=== PATIENT | male | born 1980 | race Caucasian/White ===

== ENCOUNTER 2016-12-07 01:51 | Emergency (ER) | payer MEDICAID, OTHER ==
[~2016-12-07] VITALS: Ht 177.8 cm; Wt 88.0 kg
[~2016-12-07 01:51] MED LIST: BACT800T5 PO; DOXY100C PO; MEDICAL COMPRES1 MI3
[2016-12-07 01:52] VITALS: BP 132/84; PULSE 99; RESP 18; TEMP 98; O2SAT 99
[2016-12-07] MEDS ORDERED: LIDOCAINE 1%/EPINEPHrine 1:100,000 SOLN 20 ML VIAL INFIL ONE (03:00)
[2016-12-07] MEDS ORDERED: CLINDAMYCIN 150 MG CAP PO ONE (03:00)
[2016-12-07] MEDS ORDERED: CLIN1CAP5 PO (03:00)
--- NOTE | 2016-12-07 03:01 | PD ---
HPI Chief Complaint: Skin Problem Time Seen by Provider: 02:47 Travel History International Travel<30 days: No Contact w/Intl Traveler<30days: No Traveled to known affect area: No History of Present Illness HPI The patient's 36. He's had about 1 week of left forearm swelling and pain. It' s worse with palpation. Erythema has been observed. The patient has a history of IV drug abuse. He is currently using. He denies chest pain turns of breath. He said no fever. He's had no hematuria. 2. No palpitations PFSH Past Medical History Asthma: No Autoimmune Disease: No COPD: No Diabetes: No Diminished Hearing: No Respiratory: No Pancreatitis: Yes Sleep Apnea: No Past Surgical History Oral Surgery: Yes (WISDOM TEETH REMOVED UNDER ANESTHESIA) Social History Alcohol Use: Yes (one x a month) Tobacco Use: Yes (1 PPD) Substance Use: No (hx of IV COCAINE, PAIN PILL) Allergies-Medications (Allergen,Severity, Reaction): Coded Allergies: No Known Allergies (Verified , 12/07/16) Reported Meds & Prescriptions Reported Meds & Active Scripts Active Clindamycin (Clindamycin HCl) 150 Mg Cap 450 Mg PO Q8HR 10 Days Review of Systems Except as stated in HPI: all other systems reviewed are Neg Physical Exam Narrative GENERAL: 36-year-old male, no acute distress SKIN: Focused skin assessment warm/dry. Left forearm with swelling and erythema and tenderness. There is fluctuance along the ulnar and anterior aspect of the proximal left forearm. HEAD: Atraumatic. Normocephalic. EYES: Pupils equal and round. No scleral icterus. No injection or drainage. ENT: No nasal bleeding or discharge. Mucous membranes pink and moist. NECK: Trachea midline. No JVD. CARDIOVASCULAR: Regular rate and rhythm. No murmur appreciated. RESPIRATORY: No accessory muscle use. Clear to auscultation. Breath sounds equal bilaterally. GASTROINTESTINAL: Abdomen soft, non-tender, nondistended. Hepatic and splenic margins not palpable. MUSCULOSKELETAL: No obvious deformities. No clubbing. No cyanosis. No edema. 2+ radial artery pulse bilaterally. Hand hammer runner is equal bilaterally. NEUROLOGICAL: Awake and alert. No obvious cranial nerve deficits. Motor grossly within normal limits. Normal speech. PSYCHIATRIC: Appropriate mood and affect; insight and judgment normal. Data Data Last Documented VS Vital Signs Date Time Temp Pulse Resp B/P Pulse Ox O2 Delivery O2 Flow Rate FiO2 12/07/16 01:52 98.0 99 18 132/84 99 Vital signs reviewed Orders Wound Care (12/07/16 02:49) Lidocai-Epi 1%-1:100,000 Inj (Xylocaine- (12/07/16 03:00) Clindamycin (Cleocin) (12/07/16 03:00) Wound Culture And Gram Stain (12/07/16 03:16) MDM Medical Decision Making Medical Screen Exam Complete: Yes Emergency Medical Condition: Yes Medical Record Reviewed: Yes Differential Diagnosis Abscess, cellulitis, IV drug abuse, necrotizing fasciitis Narrative Course There is no crepitus. There is a fluctuant abscess. It will be drained. We' ll send the patient with clindamycin. At this juncture is considered unlikely the patient has endocarditis. Diagnosis Primary Impression: Abscess Additional Impression: IVDU (intravenous drug user) Referrals: return for wound check in 2 days 2 days Additional Instructions: You have a choice when it comes to health care, and we are glad that you chose [facility]. Hopefully, we have met your expectations on today's visit. You are welcome to return to [facility] at any time, as we are committed to meeting the health care needs of our community. Med/Other Pt SpecificInfo: Prescription(s) given Scripts Clindamycin 150 Mg [id number] Mg PO Q8HR 10 Days Ref 0 Prov:Triston Alexis MD 12/07/16 Disposition: 01 DISCHARGE HOME Condition: Stable Triston Alexis MD Dec 07, 2016 03:01
--- NOTE | 2016-12-07 03:24 | PD ---
Physical Exam Narrative I was asked by Dr. Alexis to I&D patient's abscess. Please see his documentation for H&P. Data Data Last Documented VS Vital Signs Date Time Temp Pulse Resp B/P Pulse Ox O2 Delivery O2 Flow Rate FiO2 12/07/16 01:52 98.0 99 18 132/84 99 Orders Wound Care (12/07/16 02:49) Lidocai-Epi 1%-1:100,000 Inj (Xylocaine- (12/07/16 03:00) Clindamycin (Cleocin) (12/07/16 03:00) Wound Culture And Gram Stain (12/07/16 03:16) MDM Supervised Visit with RERE: No Procedures Procedure Narrative INCISION AND DRAINAGE OF ABSCESS: Verbal consent was obtained. The area was prepped. A subcutaneous wheal of 1% Xylocaine with epi with a total number 2 mL was used to anesthetize the area. The area was properly anesthetized. A number 11 scalpel was used to make a 1-cm incision across the area of the abscess. The abscess was drained and irrigated with normal saline. Quarter inch iodoform packing was placed in the wound. Sterile dressing applied by nurse. Patient tolerated procedure well. Patient advised to return here in 2 days to have packing removed and wound rechecked. Patient verbalized understanding. Diagnosis Primary Impression: Abscess Additional Impression: IVDU (intravenous drug user) Additional Instruction: You have a choice when it comes to health care, and we are glad that you chose [facility]. Hopefully, we have met your expectations on today's visit. You are welcome to return to [facility] at any time, as we are committed to meeting the health care needs of our community. Scripts Clindamycin 150 Mg [id number] Mg PO Q8HR 10 Days Ref 0 Prov:Triston Alexis MD 12/07/16 Disposition: 01 DISCHARGE HOME Condition: Stable Aung Zapata Dec 07, 2016 03:24
== END 2016-12-07 03:34 | disposition home or self-care (01) ==
LOC: NEPE 01:51
DX: L02.414 Cutaneous abscess of left upper limb (principal); B95.61 Methicillin susceptible Staphylococcus aureus infection as the cause of diseases classified elsewhere
CPT/HCPCS: 10061; 86403; 87070; 87186

== ENCOUNTER 2017-01-05 18:21 | Inpatient (IN) | payer MEDICAID ==
[~2017-01-05] VITALS: Ht 177.8 cm; Wt 84.3 kg
[2017-01-05 18:20] VITALS: O2SAT 99
[~2017-01-05 18:21] MED LIST changes: -BACT800T5 PO; +CLIN1CAP5 PO; -DOXY100C PO; -MEDICAL COMPRES1 MI3
[2017-01-05] MEDS ORDERED: fentaNYL CITRATE 250 MCG/5 ML AMP ONE (18:28)
[2017-01-05] MEDS ORDERED: DIPHTH/TETANUS/ACEL PERTUSSIS (BOOSTER) 0.5 ML VIAL/PFS IM ONE (18:29)
[2017-01-05] MEDS ORDERED: ceFAZolin 2 GM PREMIX 50 ML ONE (18:29)
--- NOTE | 2017-01-05 18:33 | PD ---
HPI Time Seen by Provider: 18:24 Data Data Orders Orders Ed Poc Ultrasound (01/05/17 ) Fentanyl Inj (Fentanyl Inj) (01/05/17 18:28) Cefazolin 2 Gm Premix (Ancef 2 Gm Premix (01/05/17 18:29) Ojkw-Snh-Bqznyi (Booster) Inj (Boostrix (01/05/17 18:29) Domingo Kumar MD Jan 05, 2017 18:33
[2017-01-05] MEDS ORDERED: LIDOCAINE 1%/EPINEPHrine 1:100,000 SOLN 20 ML VIAL INFIL ONE (18:45)
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
[2017-01-05 18:57] LABS: I-STAT POTASSIUM 3.1 MMOL/L (3.5-4.9)
[2017-01-05] MEDS ORDERED: ONDANSETRON HCL 4 MG/2 ML VIAL IV PRN (19:00)
[2017-01-05] MEDS ORDERED: ENALAPRILAT 1.25 MG/ML VIAL IV PRN (19:00)
[2017-01-05] MEDS ORDERED: CHLORHEXIDINE GLUCONATE 2 % 1 PACK (2 CLOTHS) TOP PRN (19:00)
[2017-01-05] MEDS ORDERED: MISCELLANEOUS NURSING INFORMATION XX SCH (19:00)
[2017-01-05] MEDS ORDERED: SODIUM CHLORIDE 0.9% FLUSH 10 ML FLUSH IV FLUSH PRN (19:00)
[2017-01-05] MEDS ORDERED: IOHEXOL 350 MG/ML 10 ML VIAL (for RAD DIAG) IVCONTRAST ONE (19:03)
[2017-01-05 19:04] LABS: AUTOMATED NEUTROPHIL # 15.4 TH/MM3 (1.8-7.7); BASOPHIL # 0.1 TH/MM3 (0-0.2); BASOPHIL % 0.5 % (0.0-2.0); EOSINOPHIL # 0.3 TH/MM3 (0-0.4); EOSINOPHIL % 1.1 % (0.0-4.0); HEMATOCRIT 40.5 % (39.0-51.0); HEMO FLAGS AUTO DIFF; LYMPH % 30.4 % (9.0-44.0); LYMPHOCYTE # 7.7 TH/MM3 (1.0-4.8); MEAN CELL VOLUME 65.7 FL (80.0-100.0); MEAN CORPUSCULAR HEMOGLOBIN 20.6 PG (27.0-34.0); MEAN CORPUSCULAR HGB CONC 31.4 % (32.0-36.0); MONO % 7.2 % (0.0-8.0); NEUT % 60.8 % (16.0-70.0); PLATELET COUNT 303 TH/MM3 (150-450); RED BLOOD COUNT 6.16 MIL/MM3 (4.50-5.90); RED CELL DISTRIBUTION WIDTH 16.2 % (11.6-17.2); WHITE BLOOD COUNT 25.3 TH/MM3 (4.0-11.0)
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
[2017-01-05] MEDS: HYDROmorphone HCL PF 1 MG/ML VIAL IVP PRN (19:44)
[2017-01-05 19:57] LABS: BANDS 4 % (0-6); NEUTROPHIL # MANUAL DIFF 15.4 TH/MM3 (1.8-7.7); PLATELET ESTIMATE SMEAR NORMAL (NORMAL); PLATELET MORPHOLOGY NORMAL (NORMAL); POLYS (SEG NEUTROPHILS) 57 % (16-70); SCAN/DIFF FINAL DIFF MANUAL; WBC DIFF SAMPLE 100
[2017-01-05 20:00] VITALS: BP 133/93; PULSE 130; RESP 28; TEMP 99.7; O2SAT 100
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
[2017-01-05] MEDS: DOCUSATE SODIUM 100 MG CAP PO SCH (20:37)
[2017-01-05] MEDS: levETIRAcetam INJ 500 MG in SODIUM CHLORIDE 0.9% INJ 100 ML IV SCH (20:51)
[2017-01-05] MEDS: PANTOPRAZOLE SODIUM 40 MG VIAL IVP SCH (20:52)
[2017-01-05] MEDS: SODIUM CHLOR 0.9% 1000 ML INJ 1,000 ML IV SCH (21:53)
[2017-01-05 22:00] VITALS: PULSE 94
[2017-01-06] VITALS (12 sets, daily range): BP systolic 123–160; BP diastolic 76–97; PULSE 66–102; RESP 15–23; TEMP 97.9–99; O2SAT 96–100
[2017-01-06] MEDS: HALOPERIDOL LACTATE 5 MG/ML AMP IV PRN (00:18)
[2017-01-06] MEDS: HYDROmorphone HCL PF 1 MG/ML VIAL IVP PRN ×5 (00:38→21:55)
[2017-01-06] MEDS: HYDROmorphone HCL PF 2 MG/ML VIAL IV PUSH PRN ×2 (02:16→08:42)
[2017-01-06] MEDS: CHLORHEXIDINE GLUCONATE 2 % 1 PACK (2 CLOTHS) TOP SCH (04:00)
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
--- NOTE | 2017-01-06 06:06 | RADRPT ---
EXAM DATE/TIME: 01/06/2017 05:13 [facility] COMPARISON: No previous studies available for comparison. INDICATIONS : Follow up trauma. RADIATION DOSE: 56.35 CTDIvol (mGy) MEDICAL HISTORY : Non-responsive. SURGICAL HISTORY : Non-responsive. ENCOUNTER: Subsequent ACUITY: 1 day PAIN SCALE: Non-responsive LOCATION: cranial TECHNIQUE: Multiple contiguous axial images were obtained of the head. Using automated exposure control and adj ustment of the mA and/or kV according to patient size, radiation dose was kept as low as reasonably a chievable to obtain optimal diagnostic quality images. DICOM format image data is available electro nically for review and comparison. FINDINGS: There is trace subarachnoid hemorrhage over the right convexity and also the left upper frontal regio n. No significant parenchymal hemorrhage identified. No mass effect or midline shift. Again seen are numerous facial bone fractures with extensive air in the subcutaneous tissues. CONCLUSION: 1. Small amount of subarachnoid hemorrhage over both convexities as above. No mass effect or shift. [place] MD on January 06, 2017 at 6:02 Board Certified Radiologist. This report was verified electronically.
[2017-01-06 06:52] LABS: AUTOMATED NEUTROPHIL # 18.7 TH/MM3 (1.8-7.7); BASOPHIL % 0.2 % (0.0-2.0); HEMATOCRIT 35.9 % (39.0-51.0); HEMO FLAGS DIFF FINAL; LYMPH % 12.5 % (9.0-44.0); MEAN CELL VOLUME 64.7 FL (80.0-100.0); MEAN CORPUSCULAR HEMOGLOBIN 19.7 PG (27.0-34.0); MEAN CORPUSCULAR HGB CONC 30.5 % (32.0-36.0); NEUT % 78.3 % (16.0-70.0); PLATELET COUNT 240 TH/MM3 (150-450); RED BLOOD COUNT 5.55 MIL/MM3 (4.50-5.90); RED CELL DISTRIBUTION WIDTH 16.2 % (11.6-17.2); WHITE BLOOD COUNT 23.9 TH/MM3 (4.0-11.0)
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
[2017-01-06 06:55] LABS: INTERNATIONAL NORMALIZED RATIO 1.1 RATIO; PROTHROMBIN TIME - PATIENT 11.7 SEC (9.8-11.6)
[2017-01-06 06:56] LABS: APTT (PATIENT) 27.4 SEC (24.3-30.1)
[2017-01-06 06:59] LABS: ANION GAP 8 MEQ/L (5-15); AST (GOT) 32 U/L (15-37); BICARBONATE 23.9 MEQ/L (21.0-32.0); BLOOD UREA NITROGEN 20 MG/DL (7-18); CHLORIDE 107 MEQ/L (98-107); GLOMERULAR FILTRATION RATE 85 ML/MIN (>89); POTASSIUM 3.8 MEQ/L (3.5-5.1); SODIUM (NA) 139 MEQ/L (136-145)
[2017-01-06 07:03] LABS: ALKALINE PHOSPHATASE 49 U/L (45-117); ALT (GPT) 20 U/L (12-78); TOTAL BILIRUBIN ADULT 0.6 MG/DL (0.2-1.0)
[2017-01-06] MEDS: DOCUSATE SODIUM 100 MG CAP PO SCH ×2 (08:26→20:21)
[2017-01-06] MEDS: levETIRAcetam INJ 500 MG in SODIUM CHLORIDE 0.9% INJ 100 ML IV SCH ×2 (08:26→19:45)
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
[2017-01-06] MEDS: SODIUM CHLOR 0.9% 1000 ML INJ 1,000 ML IV SCH (14:57)
[2017-01-06] MEDS: fentaNYL 50 MCG/HR PATCH T-DERMAL SCH (15:14)
[2017-01-06] MEDS ORDERED: DEXAMETHASONE SOD PHOS 4 MG/ML VIAL IV ONE (15:15)
[2017-01-06] MEDS: BACITRACIN TOP OINT 15 GM TUBE TOP SCH ×2 (16:38→20:21)
[2017-01-06] MEDS: PANTOPRAZOLE SODIUM 40 MG VIAL IVP SCH (18:13)
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
[2017-01-07] VITALS (12 sets, daily range): BP systolic 131–154; BP diastolic 73–89; PULSE 65–88; RESP 13–19; TEMP 97.9–99.1; O2SAT 95–99
[2017-01-07] MEDS: HALOPERIDOL LACTATE 5 MG/ML AMP IV PRN (00:12)
[2017-01-07] MEDS: SODIUM CHLOR 0.9% 1000 ML INJ 1,000 ML IV SCH ×2 (01:52→01:55)
[2017-01-07] MEDS: HYDROmorphone HCL PF 1 MG/ML VIAL IVP PRN ×6 (01:54→22:22)
[2017-01-07] MEDS: CHLORHEXIDINE GLUCONATE 2 % 1 PACK (2 CLOTHS) TOP SCH (04:00)
[2017-01-07 04:19] LABS: AUTOMATED NEUTROPHIL # 17.6 TH/MM3 (1.8-7.7); BASOPHIL % 0.1 % (0.0-2.0); EOSINOPHIL % 0.1 % (0.0-4.0); HEMATOCRIT 31.1 % (39.0-51.0); HEMO FLAGS DIFF FINAL; LYMPHOCYTE # 2.1 TH/MM3 (1.0-4.8); MEAN CELL VOLUME 63.4 FL (80.0-100.0); MEAN CORPUSCULAR HEMOGLOBIN 19.8 PG (27.0-34.0); MEAN CORPUSCULAR HGB CONC 31.3 % (32.0-36.0); MONO % 6.7 % (0.0-8.0); NEUT % 83.1 % (16.0-70.0); PLATELET COUNT 223 TH/MM3 (150-450); RED CELL DISTRIBUTION WIDTH 16.2 % (11.6-17.2); WHITE BLOOD COUNT 21.1 TH/MM3 (4.0-11.0)
[2017-01-07 04:49] LABS: ALT (GPT) 19 U/L (12-78); ANION GAP 8 MEQ/L (5-15); AST (GOT) 23 U/L (15-37); BICARBONATE 25.7 MEQ/L (21.0-32.0); BLOOD UREA NITROGEN 13 MG/DL (7-18); CHLORIDE 106 MEQ/L (98-107); GLOMERULAR FILTRATION RATE 137 ML/MIN (>89); POTASSIUM 4.1 MEQ/L (3.5-5.1); SODIUM (NA) 140 MEQ/L (136-145)
[2017-01-07 04:52] LABS: ALKALINE PHOSPHATASE 45 U/L (45-117); TOTAL BILIRUBIN ADULT 0.4 MG/DL (0.2-1.0)
[2017-01-07] MEDS ORDERED: BISACODYL 10 MG SUPP RECTAL PRN (07:30)
[2017-01-07] MEDS: BACITRACIN TOP OINT 15 GM TUBE TOP SCH ×2 (08:15→21:00)
[2017-01-07] MEDS: levETIRAcetam 500 MG/5 ML UDC PO SCH ×2 (08:15→21:35)
[2017-01-07] MEDS: LACTULOSE SYRUP 20 GM/30 ML CUP PO SCH (08:15)
[2017-01-07] MEDS ORDERED: DOCUSATE SODIUM 50 MG/SENNA 8.6 MG TAB PO SCH (09:00)
[2017-01-07] MEDS ORDERED: FAMOTIDINE 20 MG TAB PO SCH (09:00)
[2017-01-07] MEDS: SENNOSIDES SYRUP 8.8 MG/5 ML CUP PO SCH ×2 (09:30→21:35)
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
[2017-01-07] MEDS: PANTOPRAZOLE SODIUM 40 MG VIAL IV PUSH SCH (10:20)
[2017-01-07] MEDS: QUEtiapine FUMARATE 25 MG TAB PO SCH ×2 (10:23→14:15)
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
[2017-01-07] MEDS: QUEtiapine FUMARATE 100 MG TAB PO SCH (21:35)
[2017-01-08] VITALS: BP 133/83; PULSE 94; RESP 20
[2017-01-08] MEDS: HYDROmorphone HCL PF 1 MG/ML VIAL IVP PRN ×4 (03:31→21:25)
[2017-01-08 04:00] VITALS: BP 128/70; PULSE 91; RESP 17; TEMP 99.4; O2SAT 96
[2017-01-08] MEDS ORDERED: POVIDONE IODINE 5% (ANTISEPSIS KIT) 4 APPLICATIONS EACH NARE PRN (05:00)
[2017-01-08] MEDS ORDERED: INSULIN HUMAN REGULAR 1,000 UNITS/10 ML VIAL SQ PRN (05:00)
[2017-01-08] MEDS ORDERED: LACTATED RINGER'S 1000 ML IV PRN (05:00)
[2017-01-08] MEDS ORDERED: CHLORHEXIDINE GLUCONATE 2 % 1 PACK (2 CLOTHS) TOPICAL PRN (05:00)
[2017-01-08] MEDS: levETIRAcetam 500 MG/5 ML UDC PO SCH ×2 (07:52→21:00)
[2017-01-08] MEDS: QUEtiapine FUMARATE 25 MG TAB PO SCH ×2 (07:52→14:00)
[2017-01-08] MEDS: LACTULOSE SYRUP 20 GM/30 ML CUP PO SCH (07:52)
[2017-01-08] MEDS: BACITRACIN TOP OINT 15 GM TUBE TOP SCH ×2 (07:54→21:00)
[2017-01-08 08:00] VITALS: BP 133/95; PULSE 97; RESP 20; TEMP 99.9; O2SAT 98
[2017-01-08] MEDS: SENNOSIDES SYRUP 8.8 MG/5 ML CUP PO SCH ×2 (08:57→21:00)
[2017-01-08] MEDS: PANTOPRAZOLE SODIUM 40 MG VIAL IV PUSH SCH (10:23)
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
[2017-01-08 12:00] VITALS: BP 139/88; PULSE 85; RESP 18; TEMP 98.5; O2SAT 98
[2017-01-08] MEDS ORDERED: CHLORHEXIDINE GLUCONATE 0.12% 15 ML CUP ONE ×2 (14:02→14:16)
[2017-01-08] MEDS ORDERED: BALANCED SALT SOLN OPHT IRRIG 15 ML BTL ONE ×2 (14:02→14:16)
[2017-01-08] MEDS ORDERED: LIDOCAINE 2%/EPINEPHrine PF 1:200,000 20ML SDV ONE (14:03)
[2017-01-08] MEDS ORDERED: ERYTHROMYCIN 0.5% OPTH OINT 3.5 GM TUBO ONE (14:03)
[2017-01-08] MEDS ORDERED: BACITRACIN OPHT OINT 3.5 GM TUBO ONE (14:03)
[2017-01-08] MEDS ORDERED: TOBRAMYCIN/DEXAMETHASONE OPTH OINT 3.5 GM TUBE ONE (14:03)
[2017-01-08] MEDS ORDERED: ACETAMINOPHEN 1000 MG/100 ML 100 ML IV ONE (15:31)
[2017-01-08] MEDS ORDERED: FAMOTIDINE 20 MG/2 ML VIAL ONE (15:31)
[2017-01-08] MEDS ORDERED: HYDROmorphone HCL PF 2 MG/ML VIAL ONE ×2 (15:31→18:32)
[2017-01-08] MEDS ORDERED: ceFAZolin INJ 1,000 MG VIAL IV ONE (15:55)
[2017-01-08] MEDS ORDERED: ARTIFICIAL TEARS OPTH OINT 3.5 APPLIC/3.5 GM TUBO ONE (16:01)
[2017-01-08] MEDS ORDERED: SUFentanil INJ 250 MCG/5 ML AMP ONE (16:50)
[2017-01-08] MEDS ORDERED: fentaNYL CITRATE 250 MCG/5 ML AMP ONE (16:50)
[2017-01-08] MEDS ORDERED: BUPIVACAINE/EPINEPHRINE 0.5% 50 ML VIAL ONE (18:09)
[2017-01-08] MEDS ORDERED: SUGAMMADEX SODIUM 200 MG/2 ML VIAL IV PUSH ONE ×2 (18:32)
[2017-01-08] MEDS ORDERED: DO NOT ADM ANY ANTICOAGULANT DRUGS PRN (19:02)
[2017-01-08] MEDS ORDERED: MIDAZOLAM HCL 2 MG/2 ML VIAL ONE (19:09)
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
[2017-01-08] MEDS ORDERED: methylPREDNISolone SOD SUCC 125 MG/2 ML VIAL ONE (19:22)
[2017-01-08] MEDS ORDERED: *LABETALOL HCL 100 MG/20 ML VIAL PERIprocedural Use ONLY ONE (19:22)
[2017-01-08 20:00] VITALS: BP 164/92; PULSE 78; RESP 14; TEMP 99.2; O2SAT 97
[2017-01-08] MEDS: QUEtiapine FUMARATE 100 MG TAB PO SCH (21:00)
[2017-01-08] MEDS: methylPREDNISolone SOD SUCC 125 MG/2 ML VIAL IV SCH (21:24)
[2017-01-09] VITALS (10 sets, daily range): BP systolic 143–156; BP diastolic 84–92; PULSE 52–86; RESP 12–20; TEMP 98.4–99; O2SAT 96–100
[2017-01-09] MEDS: ceFAZolin 1,000 MG/NS 100 ML IV SCH ×6 (00:22→16:03)
[2017-01-09] MEDS: methylPREDNISolone SOD SUCC 125 MG/2 ML VIAL IV SCH ×2 (01:15→08:38)
[2017-01-09] MEDS: HYDROmorphone HCL PF 1 MG/ML VIAL IVP PRN ×6 (01:16→21:33)
[2017-01-09] MEDS: QUEtiapine FUMARATE 100 MG TAB PO SCH ×2 (02:45→20:46)
[2017-01-09 05:46] LABS: AUTOMATED NEUTROPHIL # 10.9 TH/MM3 (1.8-7.7); BASOPHIL % 0.1 % (0.0-2.0); HEMATOCRIT 29.1 % (39.0-51.0); HEMO FLAGS DIFF FINAL; LYMPH % 5.7 % (9.0-44.0); LYMPHOCYTE # 0.7 TH/MM3 (1.0-4.8); MEAN CELL VOLUME 64.6 FL (80.0-100.0); MEAN CORPUSCULAR HEMOGLOBIN 20.3 PG (27.0-34.0); MEAN CORPUSCULAR HGB CONC 31.5 % (32.0-36.0); MONO % 1.5 % (0.0-8.0); NEUT % 92.7 % (16.0-70.0); PLATELET COUNT 217 TH/MM3 (150-450); RED BLOOD COUNT 4.51 MIL/MM3 (4.50-5.90); WHITE BLOOD COUNT 11.7 TH/MM3 (4.0-11.0)
[2017-01-09 05:59] LABS: ALKALINE PHOSPHATASE 44 U/L (45-117); ALT (GPT) 18 U/L (12-78); ANION GAP 9 MEQ/L (5-15); AST (GOT) 16 U/L (15-37); BICARBONATE 26.2 MEQ/L (21.0-32.0); BLOOD UREA NITROGEN 14 MG/DL (7-18); CHLORIDE 103 MEQ/L (98-107); GLOMERULAR FILTRATION RATE 114 ML/MIN (>89); POTASSIUM 3.9 MEQ/L (3.5-5.1); SODIUM (NA) 138 MEQ/L (136-145); TOTAL BILIRUBIN ADULT 0.5 MG/DL (0.2-1.0)
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
[2017-01-09] MEDS: levETIRAcetam 500 MG/5 ML UDC PO SCH ×2 (08:37→20:47)
[2017-01-09] MEDS: BACITRACIN TOP OINT 15 GM TUBE TOP SCH ×2 (08:38→20:47)
[2017-01-09] MEDS: LACTULOSE SYRUP 20 GM/30 ML CUP PO SCH (08:39)
[2017-01-09] MEDS: QUEtiapine FUMARATE 25 MG TAB PO SCH ×2 (08:40→13:50)
[2017-01-09] MEDS: SENNOSIDES SYRUP 8.8 MG/5 ML CUP PO SCH ×2 (08:40→20:46)
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
[2017-01-09] MEDS ORDERED: methylPREDNISolone ACETATE 80 MG/ML VIAL IM ONE (12:00)
[2017-01-09] MEDS: PANTOPRAZOLE SODIUM 40 MG VIAL IV PUSH SCH (13:50)
[2017-01-09] MEDS: oxyCODONE/ACETAMINOPHEN 5 MG/325 MG TAB PO PRN ×2 (15:06→19:41)
[2017-01-09] MEDS ORDERED: REMOVE OLD DURAGESIC (FENTANYL) PATCH T-DERMAL SCH (16:00)
[2017-01-09] MEDS: fentaNYL 50 MCG/HR PATCH T-DERMAL SCH (16:02)
[2017-01-10] MEDS: oxyCODONE/ACETAMINOPHEN 5 MG/325 MG TAB PO PRN ×5 (01:08→20:43)
[2017-01-10 01:30] VITALS: BP 129/77; PULSE 58; RESP 18; TEMP 96.7; O2SAT 99
[2017-01-10] MEDS: HYDROmorphone HCL PF 1 MG/ML VIAL IVP PRN ×5 (02:22→22:50)
[2017-01-10 04:25] VITALS: BP 109/65; PULSE 56; RESP 18; TEMP 97; O2SAT 99
[2017-01-10 07:23] LABS: BASOPHIL % 0.2 % (0.0-2.0); HEMATOCRIT 26.3 % (39.0-51.0); HEMO FLAGS DIFF FINAL; LYMPH % 13.1 % (9.0-44.0); LYMPHOCYTE # 2.7 TH/MM3 (1.0-4.8); MEAN CELL VOLUME 65.2 FL (80.0-100.0); MEAN CORPUSCULAR HEMOGLOBIN 20.8 PG (27.0-34.0); MEAN CORPUSCULAR HGB CONC 31.9 % (32.0-36.0); MONO % 8.2 % (0.0-8.0); NEUT % 78.5 % (16.0-70.0); PLATELET COUNT 206 TH/MM3 (150-450); RED BLOOD COUNT 4.04 MIL/MM3 (4.50-5.90); WHITE BLOOD COUNT 20.4 TH/MM3 (4.0-11.0)
[2017-01-10 07:33] LABS: ALT (GPT) 14 U/L (12-78); ANION GAP 7 MEQ/L (5-15); AST (GOT) 13 U/L (15-37); BICARBONATE 28.1 MEQ/L (21.0-32.0); BLOOD UREA NITROGEN 18 MG/DL (7-18); CHLORIDE 106 MEQ/L (98-107); GLOMERULAR FILTRATION RATE 158 ML/MIN (>89); POTASSIUM 4.2 MEQ/L (3.5-5.1); SODIUM (NA) 141 MEQ/L (136-145)
[2017-01-10 07:36] LABS: ALKALINE PHOSPHATASE 41 U/L (45-117); TOTAL BILIRUBIN ADULT 0.3 MG/DL (0.2-1.0)
[2017-01-10] MEDS: LACTULOSE SYRUP 20 GM/30 ML CUP PO SCH (07:38)
[2017-01-10] MEDS: levETIRAcetam 500 MG/5 ML UDC PO SCH ×2 (07:38→21:05)
[2017-01-10] MEDS: PANTOPRAZOLE SODIUM 40 MG VIAL IV PUSH SCH (07:38)
[2017-01-10] MEDS: QUEtiapine FUMARATE 25 MG TAB PO SCH ×2 (07:38→14:01)
[2017-01-10] MEDS: BACITRACIN TOP OINT 15 GM TUBE TOP SCH ×2 (07:39→21:05)
[2017-01-10] MEDS ORDERED: BISACODYL EC 5 MG TABEC PO ONE (07:45)
[2017-01-10] MEDS ORDERED: BISACODYL 10 MG SUPP RECTAL ONE (07:45)
[2017-01-10] MEDS: SENNOSIDES SYRUP 8.8 MG/5 ML CUP PO SCH ×2 (07:48→21:05)
[2017-01-10] MEDS ORDERED: SENN8.8L PO (07:57)
[2017-01-10] MEDS ORDERED: WALKER WHEELS/F1 MIS (07:59)
[2017-01-10 08:00] VITALS: BP 105/72; PULSE 59; RESP 18; TEMP 97.4; O2SAT 97
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
[2017-01-10 12:00] VITALS: BP 120/78; PULSE 63; RESP 18; TEMP 97.2; O2SAT 98
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
[2017-01-10 16:00] VITALS: BP 121/62; PULSE 102; RESP 18; TEMP 98.8; O2SAT 96
[2017-01-10 20:30] VITALS: BP 122/72; PULSE 84; RESP 18; TEMP 97.2; O2SAT 99
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
[2017-01-10] MEDS: QUEtiapine FUMARATE 100 MG TAB PO SCH (21:05)
[2017-01-11 00:30] VITALS: BP 120/82; PULSE 86; RESP 18; TEMP 97.9; O2SAT 98
[2017-01-11] MEDS: oxyCODONE/ACETAMINOPHEN 5 MG/325 MG TAB PO PRN ×3 (01:03→12:35)
[2017-01-11] MEDS: HYDROmorphone HCL PF 1 MG/ML VIAL IVP PRN ×2 (03:01→08:13)
[2017-01-11 05:57] LABS: HEMATOCRIT 31.5 % (39.0-51.0); REVIEW FLAG FINAL
[2017-01-11 08:00] VITALS: BP 142/79; PULSE 82; RESP 16; TEMP 98.9; O2SAT 97
[2017-01-11] MEDS: QUEtiapine FUMARATE 25 MG TAB PO SCH (08:13)
[2017-01-11] MEDS: levETIRAcetam 500 MG/5 ML UDC PO SCH (08:14)
[2017-01-11] MEDS: LACTULOSE SYRUP 20 GM/30 ML CUP PO SCH (08:14)
[2017-01-11] MEDS: PANTOPRAZOLE SODIUM 40 MG VIAL IV PUSH SCH (08:14)
[2017-01-11] MEDS: SENNOSIDES SYRUP 8.8 MG/5 ML CUP PO SCH (08:14)
[2017-01-11] MEDS: BACITRACIN TOP OINT 15 GM TUBE TOP SCH (08:14)
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
[2017-01-11] MEDS ORDERED: LACTATED RINGER'S 1000 ML INJ 1,000 ML IV ONE (13:14)
[2017-01-11] MEDS ORDERED: ONDANSETRON HCL 4 MG/2 ML VIAL IV PUSH ONE (13:14)
[2017-01-11] MEDS ORDERED: PROPOFOL 200 MG/20 ML AMP IV ONE (13:14)
[2017-01-16] MEDS ORDERED: MEDICAL COMPRES1 MIS OTHER (15:23)
[2017-01-16] MEDS ORDERED: PERC10TA27 PO (15:23)
[2017-01-16] MEDS ORDERED: FERR325T8 PO (15:23)
[2017-01-16] MEDS ORDERED: TRAZ100T6 PO (17:02)
[2017-01-23] MEDS ORDERED: PERC10TA27 PO (12:25)
[2017-01-23] MEDS ORDERED: MEDICAL COMPRES1 MIS OTHER (12:31)
[2017-01-29] MEDS ORDERED: PERC10TA27 PO (12:16)
[2017-01-29] MEDS ORDERED: ERYTOIN10 RIGHT EYE (12:31)
[2017-02-06] MEDS ORDERED: BUPR150T3 PO (09:15)
[2017-02-13] MEDS ORDERED: BUSP1TAB PO (14:27)
== END 2017-01-11 13:15 | disposition home or self-care (01) | DRG 131 ==
LOC: NEPI 18:21 → EEVIPCON 18:46 → MERGE 18:46 → EDBD 18:46 → NEDA 18:46 → N03B 19:48 → N07B 01-07 22:54 → N03B 01-08 18:19 → N06B 01-10 01:19
PROVIDERS: ADMIT Surgery; ATTEND Surgery
PROC: 0HQ0XZZ Repair Scalp Skin, External Approach (ICD-10-PCS; 2017-01-05)
PROC: 0NUP0JZ Supplement Right Orbit with Synthetic Substitute, Open Approach (ICD-10-PCS; 2017-01-08)
PROC: 0NSBXZZ Reposition Nasal Bone, External Approach (ICD-10-PCS; 2017-01-08)
PROC: 08QNXZZ Repair Right Upper Eyelid, External Approach (ICD-10-PCS; 2017-01-08)
PROC: 0NST04Z Reposition Right Mandible with Internal Fixation Device, Open Approach (ICD-10-PCS; principal; 2017-01-08 15:43)
PROC: 0NSM04Z Reposition Right Zygomatic Bone with Internal Fixation Device, Open Approach (ICD-10-PCS; 2017-01-08 15:43)
PROC: 0NSN04Z Reposition Left Zygomatic Bone with Internal Fixation Device, Open Approach (ICD-10-PCS; 2017-01-08 15:43)
PROC: 0NSR04Z Reposition Maxilla with Internal Fixation Device, Open Approach (ICD-10-PCS; 2017-01-08 15:43)
PROC: 0NSS04Z (ICD-10-PCS; 2017-01-08 15:43)
DX: S02.413A LeFort III fracture, initial encounter for closed fracture (principal); S06.6X9A Traumatic subarachnoid hemorrhage with loss of consciousness of unspecified duration, initial encounter; F02.80 Dementia in other diseases classified elsewhere, unspecified severity, without behavioral disturbance, psychotic disturbance, mood disturbance, and anxiety; D56.1 Beta thalassemia; S06.5X9A Traumatic subdural hemorrhage with loss of consciousness of unspecified duration, initial encounter; S02.31XA Fracture of orbital floor, right side, initial encounter for closed fracture; S06.899A Other specified intracranial injury with loss of consciousness of unspecified duration, initial encounter; F19.20 Other psychoactive substance dependence, uncomplicated; F17.210 Nicotine dependence, cigarettes, uncomplicated; S01.111A Laceration without foreign body of right eyelid and periocular area, initial encounter; S02.2XXA Fracture of nasal bones, initial encounter for closed fracture; S02.651A Fracture of angle of right mandible, initial encounter for closed fracture; S02.40FA Zygomatic fracture, left side, initial encounter for closed fracture; S02.40EA Zygomatic fracture, right side, initial encounter for closed fracture; S01.01XA Laceration without foreign body of scalp, initial encounter; V03.10XA Pedestrian on foot injured in collision with car, pick-up truck or van in traffic accident, initial encounter; Z91.19 Patient's noncompliance with other medical treatment and regimen
CPT/HCPCS: 12004; 30901; 70450; 70486; 71010; 71260; 72125; 72128; 72131; 72170; 74177; 76377; 76937; 80053; 80307; 82435; 82565; 82947; 84132; 84295; 84520; 85007; 85014; 85018; 85025; 85027; 85610; 85730; 86850; 86900; 86901; 86920; 87641; 90471; 90715; 96374; 96375; 99291; C1713; C9113; G0390; J0131; J0690; J1040; J1100; J1170; J1630; J1953; J2250; J2405; J2930; J3010; J7030; J7120; Q9967

== ENCOUNTER 2017-01-15 15:24 | Emergency (ER) | payer MEDICAID ==
[~2017-01-15] VITALS: Ht 175.3 cm; Wt 80.0 kg
[~2017-01-15 15:24] MED LIST changes: +SENN8.8L PO; +WALKER WHEELS/F1 MIS
[2017-01-15 15:27] VITALS: BP 140/78; PULSE 90; RESP 16; TEMP 97.9; O2SAT 99
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
[2017-01-15 18:08] LABS: AUTOMATED NEUTROPHIL # 9.4 TH/MM3 (1.8-7.7); BASOPHIL % 0.3 % (0.0-2.0); EOSINOPHIL # 0.4 TH/MM3 (0-0.4); EOSINOPHIL % 3.1 % (0.0-4.0); HEMATOCRIT 29.8 % (39.0-51.0); HEMO FLAGS DIFF FINAL; LYMPH % 18.5 % (9.0-44.0); LYMPHOCYTE # 2.6 TH/MM3 (1.0-4.8); MEAN CELL VOLUME 64.8 FL (80.0-100.0); MEAN CORPUSCULAR HEMOGLOBIN 20.5 PG (27.0-34.0); MEAN CORPUSCULAR HGB CONC 31.6 % (32.0-36.0); MONO % 10.1 % (0.0-8.0); PLATELET COUNT 329 TH/MM3 (150-450); RED CELL DISTRIBUTION WIDTH 16.5 % (11.6-17.2); WHITE BLOOD COUNT 13.8 TH/MM3 (4.0-11.0)
[2017-01-15 18:14] LABS: ANION GAP 9 MEQ/L (5-15); AST (GOT) 15 U/L (15-37); BICARBONATE 26.9 MEQ/L (21.0-32.0); BLOOD UREA NITROGEN 14 MG/DL (7-18); CHLORIDE 100 MEQ/L (98-107); GLOMERULAR FILTRATION RATE 110 ML/MIN (>89); MAGNESIUM 2.2 MG/DL (1.5-2.5); POTASSIUM 4.2 MEQ/L (3.5-5.1); SODIUM (NA) 136 MEQ/L (136-145)
[2017-01-15 18:25] LABS: ALKALINE PHOSPHATASE 82 U/L (45-117); ALT (GPT) 21 U/L (12-78); TOTAL BILIRUBIN ADULT 0.4 MG/DL (0.2-1.0)
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
[2017-01-15] MEDS ORDERED: AUGM875T3 PO (19:14)
[2017-01-15] MEDS ORDERED: ULTR37.55 PO (19:14)
[2017-01-15] MEDS ORDERED: IBUP-1129 PO (19:14)
[2017-01-15] MEDS ORDERED: IBUPROFEN 600 MG TAB PO ONE (19:30)
[2017-01-15] MEDS ORDERED: KETOROLAC TROMETHAMINE 30 MG/ML (IVP) VIAL IV PUSH ONE (20:00)
--- NOTE | 2017-01-15 20:31 | PD ---
Physical Exam Narrative Received sign out to follow up US bilateral lower extremity. Pt was initially ordered ibuprofen but nurse states he wants something IV so I changed it to IV toradol. Pt had US done but it is not loaded or read yet and pt does not want to wait for the results. AMA: The risks of leaving against medical advice without further evaluation treatment were discussed with the patient. These risks include cardiac dysfunction, cardiac dysrhythmia, possible heart attack, possible stroke or . The patient indicated understanding of these risks and appeared to have the capacity to make this decision. US showed no DVT. However, this information was not known at the time pt left the ED so he signed out against medical advice. Data Data Last Documented VS Vital Signs Date Time Temp Pulse Resp B/P (MAP) Pulse Ox O2 Delivery O2 Flow Rate FiO2 01/15/17 20:56 01/15/17 15:27 97.9 90 16 99 Orders Orders Complete Blood Count With Diff (01/15/17 15:34) Comprehensive Metabolic Panel (01/15/17 15:34) C-Reactive Protein (Crp) (01/15/17 15:34) Magnesium (Mg) (01/15/17 15:34) Ct Brain W/O Iv Contrast(Rout) (01/15/17 17:27) Us Leg Venous Doppler Bilat (01/15/17 19:08) Ibuprofen (Motrin) (01/15/17 19:30) Ketorolac Inj (Toradol Inj) (01/15/17 20:00) Labs Laboratory Tests Test 01/15/17 17:25 White Blood Count 13.8 TH/MM3 Red Blood Count 4.60 MIL/MM3 Hemoglobin 9.4 GM/DL Hematocrit 29.8 % Mean Corpuscular Volume 64.8 FL Mean Corpuscular Hemoglobin 20.5 PG Mean Corpuscular Hemoglobin Concent 31.6 % Red Cell Distribution Width 16.5 % Platelet Count 329 TH/MM3 Mean Platelet Volume 8.7 FL Neutrophils (%) (Auto) 68.0 % Lymphocytes (%) (Auto) 18.5 % Monocytes (%) (Auto) 10.1 % Eosinophils (%) (Auto) 3.1 % Basophils (%) (Auto) 0.3 % Neutrophils # (Auto) 9.4 TH/MM3 Lymphocytes # (Auto) 2.6 TH/MM3 Monocytes # (Auto) 1.4 TH/MM3 Eosinophils # (Auto) 0.4 TH/MM3 Basophils # (Auto) 0.0 TH/MM3 CBC Comment DIFF FINAL Differential Comment Blood Urea Nitrogen 14 MG/DL Creatinine 0.79 MG/DL Random Glucose 101 MG/DL Total Protein 7.2 GM/DL Albumin 2.9 GM/DL Calcium Level 8.6 MG/DL Magnesium Level 2.2 MG/DL Alkaline Phosphatase 82 U/L Aspartate Amino Transf (AST/SGOT) 15 U/L Alanine Aminotransferase (ALT/SGPT) 21 U/L Total Bilirubin 0.4 MG/DL Sodium Level 136 MEQ/L Potassium Level 4.2 MEQ/L Chloride Level 100 MEQ/L Carbon Dioxide Level 26.9 MEQ/L Anion Gap 9 MEQ/L Estimat Glomerular Filtration Rate 110 ML/MIN C-Reactive Protein 8.38 MG/DL MDM Supervised Visit with RERE: No Diagnosis Primary Impression: Concussion Additional Impression: Encounter for postoperative wound check Patient Instructions: General Instructions Departure Forms: Tests/Procedures Additional Instruction: Please follow up with Dr. Olivo tomorrow. Return to the ED if symptoms worsen. Med/Other Pt SpecificInfo: Prescription(s) given Scripts Tramadol-Acetaminophen (Ultracet) 37.5-325 mg Tab 2 TAB PO Q6H Y for PAIN, #15 TAB 0 Refills Prov: Nhi Tracey MD 01/15/17 Ibuprofen (Motrin Ib) 200 Mg Tablet 600 MG PO QID Y for PAIN SCALE 1 TO 10, #28 Prov: Nhi Tracey MD 01/15/17 Amoxicillin-Clavulanate (Augmentin) 875-125 Mg Tab 1 TAB PO BID for Infection, #10 TAB 0 Refills Prov: Nhi Tracey MD 01/15/17 Disposition: 01 DISCHARGE HOME Condition: Stable Roxy Pena DO Jan 15, 2017 20:31
--- NOTE | 2017-01-15 21:10 | RADRPT ---
EXAM DATE/TIME: 01/15/2017 19:40 [place] COMPARISON: No previous studies available for comparison. INDICATIONS : Bilateral leg swelling. MEDICAL HISTORY : Dyspnea. Pancreatitis. Alcohol use. Substance abuse. SURGICAL HISTORY : [place] teeth removed. ENCOUNTER: Subsequent ACUITY: 2 day PAIN SCORE: 8/10 LOCATION: Bilateral legs. TECHNIQUE: Venous ultrasound of the left and right leg was performed from the inguinal ligament to the proximal calf. Real-time, color Doppler and spectral tracing, compression and augmentation techniques were us ed. FINDINGS: RIGHT LEG: There is normal compressibility of the deep venous system from the inguinal region to the proximal ca lf. No echogenic clot is seen in the lumen of the common femoral, femoral, popliteal, and posterior tibial veins. There is a normal response of the venous system to proximal and distal augmentation an d respiration. LEFT LEG: There is normal compressibility of the deep venous system from the inguinal region to the proximal ca lf. No echogenic clot is seen in the lumen of the common femoral, femoral, popliteal, and posterior tibial veins. There is a normal response of the venous system to proximal and distal augmentation an d respiration. CONCLUSION: No DVT. Patrick Cummings MD on January 15, 2017 at 21:07 Board Certified Radiologist. This report was verified electronically.
[2017-01-16] MEDS ORDERED: FERR325T8 PO (15:23)
[2017-01-16] MEDS ORDERED: MEDICAL COMPRES1 MIS OTHER (15:23)
[2017-01-16] MEDS ORDERED: PERC10TA27 PO (15:23)
[2017-01-16] MEDS ORDERED: TRAZ100T6 PO (17:02)
[2017-01-23] MEDS ORDERED: PERC10TA27 PO (12:25)
[2017-01-23] MEDS ORDERED: MEDICAL COMPRES1 MIS OTHER (12:31)
[2017-01-29] MEDS ORDERED: PERC10TA27 PO (12:16)
[2017-01-29] MEDS ORDERED: ERYTOIN10 RIGHT EYE (12:31)
[2017-02-06] MEDS ORDERED: BUPR150T3 PO (09:15)
[2017-02-13] MEDS ORDERED: BUSP1TAB PO (14:27)
== END 2017-01-15 20:58 | disposition home or self-care (01) ==
LOC: NEPE 15:24
DX: S06.0X0D Concussion without loss of consciousness, subsequent encounter (principal); R41.9 Unspecified symptoms and signs involving cognitive functions and awareness; R22.0 Localized swelling, mass and lump, head; M79.89 Other specified soft tissue disorders; K85.90 Acute pancreatitis without necrosis or infection, unspecified; F17.200 Nicotine dependence, unspecified, uncomplicated; V03.10XD Pedestrian on foot injured in collision with car, pick-up truck or van in traffic accident, subsequent encounter
CPT/HCPCS: 70450; 80053; 83735; 85025; 86140; 93970; 96374; 99285; J1885